=== PATIENT | female | born 1980 | race Caucasian/White ===

== ENCOUNTER 2020-12-12 16:56 | Emergency (ER) | payer SELFPAY ==
[~2020-12-12] VITALS: Ht 170.2 cm; Wt 58.0 kg
[2020-12-12 17:01] VITALS: BP 116/71
== END 2020-12-13 00:23 | disposition left against medical advice (07) ==
LOC: ER 16:56
DX: Z53.21 Procedure and treatment not carried out due to patient leaving prior to being seen by health care provider (principal)
CPT/HCPCS: 93005